=== PATIENT | male | born 1960 | race Caucasian/White ===

== ENCOUNTER 2022-01-29 15:29 | Emergency (ER) | payer OTHER ==
[~2022-01-29] VITALS: Ht 175.3 cm; Wt 80.3 kg
[2022-01-29 15:43] VITALS: BP 141/97
--- NOTE | 2022-01-29 16:06 | NUR ---
WALKED IN C/O B/L FLANK PAIN AND TROUBLE URINATING. STATES LAST VOID AM TODAY OF ABOUT 50CC. DENIES DYSURIA OR HEMATURIA. DENIES HX BPH. AAOX4, AMBULATORY. AFEBRILE. VITALS STABLE. URINE COLLECTED.
--- NOTE | 2022-01-29 16:24 | NUR ---
per ermd verbal order, performed bladder scanner. 34ml of urine noted on scanner. ermd notified
--- NOTE | 2022-01-29 16:24 | NUR ---
pt denies any pelvic tenderness.
[2022-01-29 17:09] LABS: APPEARANCE,URINE CLEAR (CLEAR); BILIRUBIN,URINE 2+ (NEGATIVE); BLOOD, URINE TRACE-I (NEGATIVE); COLOR,URINE YELLOW (YELLOW); LEUKOCYTE ESTERASE ,URINE NEGATIVE (NEGATIVE); NITRITE, URINE NEGATIVE (NEGATIVE); UGLUCOSE 1+ (NEGATIVE)
[2022-01-29 17:11] LABS: RBC,URINE 0-5 /HPF (0-5); WBC,URINE NONE SEEN /HPF (0-5)
[2022-01-29] MEDS ORDERED: SULF-59 PO (17:50)
[2022-01-29] MEDS ORDERED: TAMS0.4C96 PO (17:50)
[2022-01-29 18:00] VITALS: BP 133/76
--- NOTE | 2022-01-29 18:00 | NUR ---
Patient discharged with v/s stable. Written and verbal after care instructions given and explained. Patient alert, oriented and verbalized understanding of instructions. Ambulatory with steady gait. All questions addressed prior to discharge. ID band removed. Patient advised to follow up with PMD. Patient educated on indication of medication including possible reaction and side effects. Opportunity to ask questions provided and answered.
== END 2022-01-29 18:00 | disposition home or self-care (01) ==
LOC: MED 15:29
DX: R30.0 Dysuria (principal); E11.9 Type 2 diabetes mellitus without complications; I10 Essential (primary) hypertension; Z79.4 Long term (current) use of insulin; Z79.899 Other long term (current) drug therapy
CPT/HCPCS: 81001; 99284